=== PATIENT | male | born 1985 | race Caucasian/White ===

== ENCOUNTER 2024-04-19 21:56 | Inpatient (IN) | payer SELFPAY ==
[2024-04-19 21:58] VITALS: BP 145/103; PULSE 112; RESP 18; TEMP 37.1; O2SAT 92; BMI 22.6
[2024-04-19 22:01] VITALS: BP 145/103; PULSE 109; O2SAT 94
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
[2024-04-19 22:48] LABS: Basophils # 0.1 10^3/uL (0.0-0.1); Basophils % 0.8 %; Eosinophils # 0.1 10^3/uL (0.0-0.8); Hematocrit 40.7 % (37-53); Lymphocytes # 2.3 10^3/uL (0.8-4.8); Lymphocytes % 34.4 %; Mean Corpuscular HGB Conc 32.9 g/dL (30-55); Mean Corpuscular Hemoglobin 28.5 pg (27-33); Mean Corpuscular Volume 86.6 fl (82-101); Mean Platelet Volume 9.9 fL (7.4-10.4); Monocytes # 0.2 10^3/uL (0.2-0.9); Monocytes % 3.5 %; Neutrophils # 3.93 10^3/uL (1.8-7.7); Nucleated Red Blood Cells % 0 %; Platelet Count 235 10^3/cmm (157-399); Red Cell Distribution Width 13.2 % (12.1-15.1); White Blood Count 6.65 10^3/uL (3.29-11.43)
[2024-04-19 22:52] LABS: Bilirubin Urine Negative (Negative); Blood Urine Negative (Negative); Glucose Urine UA Negative (Normal); Ketones Urine Negative (Negative); Leukocyte Esterase Urine Negative (Negative); Nitrate Urine Negative (Negative); Protein Urine 1+ (Negative); Specific Gravity, Urine 1.016 (1.005-1.030); Urine Appearance Clear (CLEAR); Urine Color Yellow (Yellow)
--- NOTE | 2024-04-19 22:52 | PC.NURSE ---
Pt changed into green scrubs, belongings taken from pt and bagged. Room cleared and sitter present.
[2024-04-19 22:57] LABS: Add Urine Microscopic? YES; Bacteria Urine None Seen /hpf; Hyaline Casts Urine 1.21 /lpf; RBC Urine 0-2 /hpf (0-2); Squamous Epithelial Cell Urine 0-5 /hpf (0-5); WBC Urine 0-5 /hpf (0-5)
[2024-04-19 23:00] LABS: Amphetamines Screen Urine Negative (Negative); Barbiturates Screen Urine Negative (Negative); Benzodiazepines Screen Urine Negative (Negative); Cocaine Screen Urine Negative (Negative); Opiate Screen Urine Negative (Negative); PCP Screen Urine Negative (Negative); THC Screen Urine Positive (Negative)
[2024-04-19] MEDS: HYDROmorphone 0.5 MG/0.5 ML INJ IVP (23:04)
[2024-04-19 23:10] LABS: Alanine Aminotransferase 103 U/L (0-41); Albumin Level 4.3 g/dL (3.5-5.2); Alkaline Phosphatase 139 U/L (40-130); Anion Gap 19.3 (5-19); Aspartate Amino Transferase 219 U/L (0-40); Blood Urea Nitrogen 9 mg/dL (6-20); Calcium 8.1 mg/dL (8.5-10.5); Carbon Dioxide 23 mmol/L (22-29); Chloride 105 mmol/L (98-107); Creatinine Clr Calc Pharmacy 127.6151; Globulin 2.7 g/dL (1.3-4.6); Glomerular Filtration Rate 125.5 mL/min (90-130); Glucose 94 mg/dL (65-115); Osmolality Calculated 296 mOsm/kg (285-295); Potassium 3.3 mmol/L (3.5-5.1); Sodium 144 mmol/L (136-145); Total Bilirubin 0.7 mg/dL (0.15-1.2)
[2024-04-19 23:11] LABS: Acetaminophen < 5.0 ug/mL (10-30); Salicylate < 0.3 mg/dL (3-10)
[2024-04-19 23:12] LABS: Alcohol Level 343 mg/dL (0-10)
--- NOTE | 2024-04-19 23:39 | PC.NURSE ---
Pts 96 hour hold rights were read to the pt at this time with security. pt does not have any questions or concerns at this time
[2024-04-20] VITALS (10 sets, daily range): BP systolic 123–172; BP diastolic 62–99; PULSE 86–121; RESP 16–19; TEMP 36.8–37.2; O2SAT 93–96
--- NOTE | 2024-04-20 02:05 | PC.NURSE ---
This DIRECTOR SUPPLY CHAIN removed IV from right forearm upon arrival to unit. Pt tolerated well.
[2024-04-20] MEDS: ibuprofen 600 mg Tablet PO ×2 (02:48→23:17)
[2024-04-20] MEDS: hyDROXYzine 25 mg Capsule 50 MG PO (02:49)
[2024-04-20] MEDS: trazodone 50 mg Tablet PO (02:49)
[2024-04-20] MEDS: OLANZapine 5 mg ODT PO (02:49)
[2024-04-20] MEDS: nicotine 4 mg lozenge MUCOUS MEM ×2 (03:22→23:17)
--- NOTE | 2024-04-20 09:07 | PC.OT ---
OT courtney attempted with nursing stating let them sleep; will attempt again at a later time.
[2024-04-20] MEDS: thiamine 100 mg Tablet PO (09:13)
[2024-04-20] MEDS: flu vacc pf 24-25 (6 mos+) SYRINGE 45 MCG IM (09:13)
[2024-04-20] MEDS: multivitamin therapeutic Tablet 1 TAB PO (09:13)
[2024-04-20] MEDS: folic acid 1 mg Tablet PO (09:13)
[2024-04-20] MEDS: LORazepam 2 mg Tablet PO ×3 (09:26→23:16)
--- NOTE | 2024-04-20 09:26 | PC.NURSE ---
Pt given 2mg PO Ativan per protocol for a 12 on the CIWA scale.
--- NOTE | 2024-04-20 12:08 | PC.OT ---
OT evaluation attempted with patient sleeping soundly; will attempt again at another time.
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
[2024-04-21] VITALS (7 sets, daily range): BP systolic 121–152; BP diastolic 80–99; PULSE 87–117; RESP 16–18; TEMP 36.3–37.7; O2SAT 93–97
[2024-04-21] MEDS: multivitamin therapeutic Tablet 1 TAB PO (08:14)
[2024-04-21] MEDS: thiamine 100 mg Tablet PO (08:14)
[2024-04-21] MEDS: acetaminophen 325 mg Tablet 650 MG PO ×2 (08:14→14:30)
[2024-04-21] MEDS: LORazepam 2 mg Tablet PO ×3 (08:14→16:57)
[2024-04-21] MEDS: folic acid 1 mg Tablet PO (08:14)
[2024-04-21] MEDS: nicotine 4 mg lozenge MUCOUS MEM ×5 (08:17→21:19)
[2024-04-21] MEDS: ibuprofen 600 mg Tablet PO ×3 (10:34→22:51)
--- NOTE | 2024-04-21 13:08 | P.NPUPN_ITS ---
Subjective NPU 2 Subjective: 39-year-old white male admitted with par anoia and suicidal ideation with a history of alcohol dependence. The patient continued to have show evidence of alcohol withdrawal symptoms with some autonomic instability. He had required the use of Ativan to manage alcohol withdrawal symptoms. He had continued to appear tired and lying in bed most of the day and was unable to provide any further information regarding why he had taken a plane from [place] to come to [place] with no family in the nearby area. He had been unable to engage in self-care without significant prompting and help. He had reported being unable to recall his medications were where he had been hospitalized last week for treatment in [place]. The patient reports that he was on wellbutrin and seroquel at the time of discharge last week from hospital in [place]. Mental Status Exam 2 MSE Comments: The patient had difficulty with staying awake as he was in and out of consciousness again today. He had active nasal abrasion with no active bleeding but dried blood on his nose. His hygiene was poor. He appeared tremulous at times. He was oriented to person only today. His mood was described as :not good. His affect was subdued. There was no evidence of any abnormal involuntary motor movements, tics, or tremors appreciated. There was no evidence of delusional thinking. He did not appear to be responding to internal stimuli. His attention span was impaired. His recent and remote memory appeared impaired. His insight is poor. His judgment is impaired. His impulse control appeared limited. Vitals/I&O/Wt Last Vital Signs Temp 97.4 F L 04/21/24 11:47 Pulse 117 H 04/21/24 11:47 Resp 16 04/21/24 11:47 BP 146/98 04/21/24 11:47 Pulse Ox 97 04/21/24 11:47 O2 Del Method Room Air 04/21/24 11:47 Weight last 48 hrs Weight 63.503 kg Data NPU 04/19/24 22:38 04/19/24 22:38 A&P Assessment and plan (1) Unspecified mood [affective] disorder: (2) Alcohol abuse: (3) Suicidal ideation: Plan 39-year-old male history of significant alcohol abuse with a blood alcohol level of 343 involuntarily hospitalized at N[facility] with inability to provide further history at this time. #1.? Engage patient in individual milieu and group therapy. #2?? Recommend sober living treatment at the highest level of care to which the patient is willing to commit #3??? CIWA for alcohol withdrawal #4?? TO-15 minute checks? #5?? Will attempt to gather collateral information and monitor mood in context of involuntary placement. Continue Seroquel restarted at 200mg at night. Attempt to gather medical records from facility in [facility]. PDMP PDMP Reviewed: Not Reviewed Involuntary Hold Information 2 Hold Status: Legal Status: 96 Hour Hold Date/Time Hold Expires: 0 04/25/24@3034 Attestations NPU 2 Medical Necessity Statement*: Inpatient hospitalization is medically necessary and deemed to be the clinically appropriate intervention at this time.? ? Medications will be initiated and adjusted accordingly.? The patient?s likely length of stay is 5-7 days.? Coding Level of Care Code Acute Code for Chg Fwd Diagnoses Unspecified mood [affective] disorder F39 Alcohol abuse F10.10 Suicidal ideation R45.851
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
--- NOTE | 2024-04-21 16:45 | PC.NURSE ---
@ [phone] fax sent to [facility] @[phone] with a signed release of information on patients stay at their facility.
--- NOTE | 2024-04-21 16:54 | PC.NURSE ---
[facility] [place] medical records shan at [phone] she stated that she would be able to send information in next 30minutes.
[2024-04-21] MEDS: quetiapine 100 mg Tablet 200 MG PO (21:12)
[2024-04-21] MEDS: trazodone 50 mg Tablet PO (21:12)
[2024-04-21] MEDS: hyDROXYzine 25 mg Capsule 50 MG PO (21:12)
[2024-04-22] VITALS (7 sets, daily range): BP systolic 118–140; BP diastolic 74–96; PULSE 99–128; RESP 16–18; TEMP 36.5–37.2; O2SAT 94–97
[2024-04-22] MEDS: OLANZapine 5 mg ODT PO ×3 (00:03→21:04)
[2024-04-22] MEDS: trazodone 50 mg Tablet PO ×3 (00:03→23:18)
[2024-04-22] MEDS: nicotine 4 mg lozenge MUCOUS MEM ×8 (03:19→23:18)
[2024-04-22] MEDS: ondansetron 4 MG Tablet PO (03:26)
[2024-04-22] MEDS: acetaminophen 325 mg Tablet 650 MG PO ×2 (03:26→14:19)
[2024-04-22] MEDS: LORazepam 2 mg Tablet PO ×2 (03:26→11:53)
--- NOTE | 2024-04-22 03:28 | PC.NURSE ---
ciwa = 10 ATIVAN 2MG po GIVEN
[2024-04-22] MEDS: thiamine 100 mg Tablet PO (07:58)
[2024-04-22] MEDS: multivitamin therapeutic Tablet 1 TAB PO (07:58)
[2024-04-22] MEDS: folic acid 1 mg Tablet PO (07:58)
[2024-04-22] MEDS: ibuprofen 600 mg Tablet PO (07:58)
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
[2024-04-22] MEDS: hyDROXYzine 25 mg Capsule 50 MG PO (21:04)
[2024-04-22] MEDS: quetiapine 100 mg Tablet 200 MG PO (21:04)
[2024-04-22] MEDS: haloperidol 5 mg Tablet PO (23:19)
[2024-04-23] MEDS: nicotine 4 mg lozenge MUCOUS MEM ×9 (01:40→23:25)
[2024-04-23] MEDS: ibuprofen 600 mg Tablet PO ×2 (02:41→07:59)
[2024-04-23 03:00] VITALS: BP 120/80; PULSE 116; RESP 16; TEMP 36.8; O2SAT 94
[2024-04-23 07:00] VITALS: BP 123/88; PULSE 98; RESP 16; TEMP 36.6; O2SAT 94
[2024-04-23] MEDS: hyDROXYzine 25 mg Capsule 50 MG PO ×3 (07:58→23:25)
[2024-04-23] MEDS: folic acid 1 mg Tablet PO (07:58)
[2024-04-23] MEDS: thiamine 100 mg Tablet PO (07:59)
[2024-04-23] MEDS: buPROPion XL (24 HR) 150 mg Tablet PO (08:00)
[2024-04-23] MEDS: multivitamin therapeutic Tablet 1 TAB PO (08:00)
[2024-04-23 11:00] VITALS: BP 129/79; PULSE 108; RESP 16; TEMP 36.8; O2SAT 95
[2024-04-23 15:00] VITALS: BP 149/101; PULSE 113; RESP 16; TEMP 36.3; O2SAT 96
[2024-04-23] MEDS: OLANZapine 5 mg ODT PO (15:46)
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
[2024-04-23] MEDS: acetaminophen 325 mg Tablet 650 MG PO ×2 (17:59→23:25)
[2024-04-23 19:00] VITALS: BP 145/104; PULSE 116; RESP 18; TEMP 36.9; O2SAT 96
[2024-04-23] MEDS: trazodone 50 mg Tablet PO ×2 (20:14→23:25)
[2024-04-23] MEDS: quetiapine 100 mg Tablet 200 MG PO (20:15)
[2024-04-23] MEDS: LORazepam 2 mg Tablet PO (20:15)
[2024-04-23 23:00] VITALS: BP 129/79; PULSE 120; RESP 17; O2SAT 96
[2024-04-24 03:00] VITALS: BP 126/95; PULSE 81; RESP 16; O2SAT 97
[2024-04-24 07:00] VITALS: BP 140/92; PULSE 88; RESP 16; TEMP 36.7; O2SAT 96
[2024-04-24] MEDS: thiamine 100 mg Tablet PO (07:58)
[2024-04-24] MEDS: folic acid 1 mg Tablet PO (07:58)
[2024-04-24] MEDS: hyDROXYzine 25 mg Capsule 50 MG PO ×2 (07:58→15:52)
[2024-04-24] MEDS: ibuprofen 600 mg Tablet PO ×2 (07:58→15:52)
[2024-04-24] MEDS: buPROPion XL (24 HR) 150 mg Tablet PO (07:58)
[2024-04-24] MEDS: multivitamin therapeutic Tablet 1 TAB PO (07:59)
[2024-04-24] MEDS: nicotine 4 mg lozenge MUCOUS MEM ×5 (08:00→19:49)
[2024-04-24 11:00] VITALS: BP 74/43; PULSE 102; RESP 16; TEMP 36.8; O2SAT 98
--- NOTE | 2024-04-24 12:56 | P.NPUPN_ITS ---
Subjective NPU 2 Subjective: 39-year-old white male admitted with par anoia and suicidal ideation with a history of alcohol dependence. The patient had endorsed depression but stated that he was feeling better. He had continued to worry about being homeless. He had reported no nightmares or flashbacks regarding previous trauma. He had reported no cravings for alcohol at this time. He had reported some improvement in sleep with the increase in Seroquel. Patient stated that he intended on remaining in [place] and was hopeful about going to a [facility] to remain sober. Mental Status Exam 2 MSE Comments: The patient was alert and oriented x3 today. He had healing nasal abrasion. His hygiene was fair. There was no evidence of any abnormal involuntary motor movements, tics, or tremors appreciated. His mood was described as : depressed His affect was restricted in range. His thought process was linear, logical and goal directed. There was no evidence of delusional thinking. He did not appear to be responding to internal stimuli. His attention span was impaired. His recent and remote memory appeared to be improving. His insight is improving. His judgment is impaired. His impulse control appeared fair. Vitals/I&O/Wt Last Vital Signs Temp 98.3 F 04/24/24 11:00 Pulse 102 H 04/24/24 11:00 Resp 16 04/24/24 11:00 BP 74/43 04/24/24 11:00 Pulse Ox 98 04/24/24 11:00 O2 Del Method Room Air 04/24/24 11:00 Weight last 48 hrs Weight 71.123 kg Data NPU 04/19/24 22:38 04/19/24 22:38 A&P Assessment and plan (1) Unspecified mood [affective] disorder: (2) Alcohol abuse: (3) Suicidal ideation: Plan 39-year-old male history of significant alcohol abuse with a blood alcohol level of 343 involuntarily hospitalized at NPU with inability to provide further history at this time. #1.? Engage patient in individual milieu and group therapy. #2?? Recommend sober living treatment at the highest level of care to which the patient is willing to commit #3??? CIWA for alcohol withdrawal #4?? TO-15 minute checks? #5?? Will attempt to gather collateral information and monitor mood in context of involuntary placement. Continue Seroquel at 200mg at night. Increase wellbutrin xl 300mg in am. PDMP PDMP Reviewed: Not Reviewed Involuntary Hold Information 2 Hold Status: Legal Status: 96 Hour Hold Date/Time Hold Expires: 04/25/2024 @ 1007 Attestations NPU 2 Medical Necessity Statement*: Inpatient hospitalization is medically necessary and deemed to be the clinically appropriate intervention at this time.? ? Medications will be initiated and adjusted accordingly.? The patient?s likely length of stay is 3-4 days.? Coding Level of Care Code Acute Code for Chg Fwd Diagnoses Unspecified mood [affective] disorder F39 Alcohol abuse F10.10 Suicidal ideation R45.851
[2024-04-24 15:00] VITALS: BP 134/94; PULSE 108; RESP 16; TEMP 36.6; O2SAT 96
[2024-04-24 19:00] VITALS: BP 138/85; PULSE 110; RESP 18; TEMP 37.3; O2SAT 96
[2024-04-24] MEDS: quetiapine 100 mg Tablet 200 MG PO (19:48)
[2024-04-24] MEDS: trazodone 50 mg Tablet PO ×2 (19:48→22:44)
[2024-04-24] MEDS: acetaminophen 325 mg Tablet 650 MG PO (19:48)
[2024-04-24 23:00] VITALS: BP 121/88; PULSE 120; RESP 18; O2SAT 95
[2024-04-25 03:00] VITALS: BP 128/82; PULSE 99; RESP 18; TEMP 36.4; O2SAT 95
[2024-04-25] MEDS: ibuprofen 600 mg Tablet PO ×2 (05:19→16:13)
[2024-04-25] MEDS: nicotine 4 mg lozenge MUCOUS MEM ×8 (06:02→22:07)
[2024-04-25] MEDS: multivitamin therapeutic Tablet 1 TAB PO (07:56)
[2024-04-25] MEDS: folic acid 1 mg Tablet PO (07:57)
[2024-04-25] MEDS: buPROPion XL (24 HR) 150 mg Tablet 300 MG PO (07:57)
[2024-04-25] MEDS: thiamine 100 mg Tablet PO (07:57)
[2024-04-25] MEDS: hyDROXYzine 25 mg Capsule 50 MG PO ×2 (07:58→18:17)
[2024-04-25 14:00] VITALS: BP 160/110; PULSE 98; RESP 18; TEMP 37.2; O2SAT 98
--- NOTE | 2024-04-25 15:03 | P.NPUPN_ITS ---
Subjective NPU 2 Subjective: 39-year-old white male admitted with par anoia and suicidal ideation with a history of alcohol dependence. The patient reported no changes in regards to his mood. He had stated that he was sleeping better with the increase in Seroquel. He had reported his depression had been better. He had complained of being homeless and stated that he would like to be able to find a half-way to reside in after leaving here. He had remained isolative on the milieu but reported having no suicidal thoughts at this time. Mental Status Exam 2 MSE Comments: The patient was alert and oriented x3 today. He had healing nasal abrasion. His hygiene was fair. There was no evidence of any abnormal involuntary motor movements, tics, or tremors appreciated. His mood was described as : okay His affect was restricted in range. His thought process was linear, logical and goal directed. There was no evidence of delusional thinking. He did not appear to be responding to internal stimuli. His attention span was improving. His recent and remote memory appeared to be improving. His insight is improving. His judgment is improving. His impulse control appeared fair. Vitals/I&O/Wt Last Vital Signs Temp 97.6 F 04/25/24 03:00 Pulse 99 04/25/24 03:00 Resp 18 04/25/24 03:00 BP 128/82 04/25/24 03:00 Pulse Ox 95 04/25/24 03:00 O2 Del Method Room Air 04/24/24 15:00 Weight last 48 hrs Weight 71.123 kg Data NPU 04/19/24 22:38 04/19/24 22:38 A&P Assessment and plan (1) Unspecified mood [affective] disorder: (2) Alcohol abuse: (3) Suicidal ideation: Plan 39-year-old male history of significant alcohol abuse with a blood alcohol level of 343 involuntarily hospitalized at NPU with history of alcohol dependence and depression along with history of questionable psychosis. #1.? Engage patient in individual milieu and group therapy. #2?? Recommend sober living treatment at the highest level of care to which the patient is willing to commit #3??? CIWA for alcohol withdrawal #4?? TO-15 minute checks? #5?? Will attempt to gather collateral information and monitor mood in context of involuntary placement. Continue Seroquel at 200mg at night. Continue wellbutrin xl 300mg in am. PDMP PDMP Reviewed: Not Reviewed Involuntary Hold Information 2 Hold Status: Legal Status: 96 Hour Hold Date/Time Hold Expires: 04/25/2024 @ 7526 Attestations NPU 2 Medical Necessity Statement*: Inpatient hospitalization is medically necessary and deemed to be the clinically appropriate intervention at this time.? ? Medications will be initiated and adjusted accordingly.? The patient?s likely length of stay is 1-2 days.? Coding Level of Care Code Acute Code for Chg Fwd Diagnoses Unspecified mood [affective] disorder F39 Alcohol abuse F10.10 Suicidal ideation R45.851
[2024-04-25] MEDS: OLANZapine 5 mg ODT PO (18:52)
[2024-04-25 19:30] VITALS: BP 135/98; PULSE 98; RESP 18; TEMP 37.2; O2SAT 97
[2024-04-25] MEDS: trazodone 50 mg Tablet PO (20:16)
[2024-04-25] MEDS: quetiapine 100 mg Tablet 200 MG PO (20:16)
[2024-04-25] MEDS: acetaminophen 325 mg Tablet 650 MG PO (20:43)
[2024-04-26] MEDS: trazodone 50 mg Tablet PO (00:30)
[2024-04-26 06:00] VITALS: BP 105/69; PULSE 102; RESP 16; TEMP 36.6; O2SAT 97
[2024-04-26] MEDS: acetaminophen 325 mg Tablet 650 MG PO ×2 (07:12→13:41)
[2024-04-26] MEDS: nicotine 4 mg lozenge MUCOUS MEM ×3 (07:17→11:28)
[2024-04-26] MEDS: thiamine 100 mg Tablet PO (07:53)
[2024-04-26] MEDS: multivitamin therapeutic Tablet 1 TAB PO (07:53)
[2024-04-26] MEDS: folic acid 1 mg Tablet PO (07:53)
[2024-04-26] MEDS: buPROPion XL (24 HR) 150 mg Tablet 300 MG PO (07:54)
[2024-04-26] MEDS: hyDROXYzine 25 mg Capsule 50 MG PO (07:55)
--- NOTE | 2024-04-26 09:15 | XRR_ITS ---
PROCEDURE INFORMATION: Exam: XR Right Ribs Exam date and time: 04/26/2024 8:32 AM Age: 39 years old Clinical indication: Chest wall pain; Right; Additional info: Repeat / pain TECHNIQUE: Imaging protocol: Radiologic exam of the right ribs. Views: 2 views. COMPARISON: CR XR ribs RT mn 3V w CXR1V [id number] 04/21/2024 1:18 PM FINDINGS: Bones/joints: There is no right-sided rib fracture. Lungs: Calcified granuloma at the right lung base. Pleural spaces: No pneumothorax. Soft tissues: Normal. XR/XR ribs RT 2V* [id number] IMPRESSION: No right-sided rib fracture
[2024-04-26] MEDS: ibuprofen 600 mg Tablet PO (11:29)
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
[2024-04-26 13:48] VITALS: BP 143/89; PULSE 117; RESP 18; TEMP 36.9; O2SAT 98
[2024-04-26 13:49] VITALS: BP 142/89; PULSE 117; RESP 18; TEMP 36.9; O2SAT 98
== END 2024-04-26 15:38 | disposition home or self-care (01) | DRG 885 ==
LOC: ER 23:38 → NP 04-20 00:40
PROVIDERS: Admitting Provider Psychiatry & Neurology Psychiatry; Emergency Provider Physician Assistant; Visit Provider Psychiatry & Neurology Psychiatry
DX: F39 Unspecified mood [affective] disorder (principal); R45.851 Suicidal ideations; F10.239 Alcohol dependence with withdrawal, unspecified; Z59.00 Homelessness unspecified; Y90.8 Blood alcohol level of 240 mg/100 ml or more
CPT/HCPCS: 70450; 70486; 71100; 71101; 72125; 73000; 73010; 80053; 80306; 80307; 81001; 85025; 90471; 90686; 96374; 97150; 97165; 99285; J1171; J9999; Q0162

== ENCOUNTER 2024-05-03 04:04 | Emergency (ER) | payer MEDICARE, SELFPAY ==
[2024-05-03 04:05] VITALS: BP 126/86; PULSE 137; RESP 18; TEMP 36.6; O2SAT 97; BMI 24.2
[2024-05-03 04:15] VITALS: BP 126/86; PULSE 136; RESP 16; O2SAT 95
[2024-05-03 04:35] LABS: Basophils # 0.1 10^3/uL (0.0-0.1); Basophils % 0.5 %; Eosinophils # 0.1 10^3/uL (0.0-0.8); Eosinophils % 0.3 %; Hematocrit 49.8 % (37-53); Lymphocytes # 8.6 10^3/uL (0.8-4.8); Lymphocytes % 52.5 %; Mean Corpuscular HGB Conc 32.3 g/dL (30-55); Mean Corpuscular Hemoglobin 27.9 pg (27-33); Mean Corpuscular Volume 86.3 fl (82-101); Mean Platelet Volume 8.7 fL (7.4-10.4); Monocytes # 0.5 10^3/uL (0.2-0.9); Monocytes % 3.2 %; Neutrophils % 43.1 %; Nucleated Red Blood Cells % 0 %; Platelet Count 566 10^3/cmm (157-399); Red Blood Count 5.77 10^6/uL (3.85-5.65); Red Cell Distribution Width 15.1 % (12.1-15.1); White Blood Count 16.47 10^3/uL (3.29-11.43)
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
[2024-05-03 04:52] LABS: Alanine Aminotransferase 139 U/L (0-41); Albumin Level 4.5 g/dL (3.5-5.2); Alkaline Phosphatase 154 U/L (40-130); Anion Gap 29.4 (5-19); Aspartate Amino Transferase 179 U/L (0-40); Blood Urea Nitrogen 15 mg/dL (6-20); Calcium 8.7 mg/dL (8.5-10.5); Carbon Dioxide 17 mmol/L (22-29); Chloride 96 mmol/L (98-107); Creatinine Clr Calc Pharmacy 102.0842; Glomerular Filtration Rate 93.9 mL/min (90-130); Glucose 82 mg/dL (65-115); Osmolality Calculated 288 mOsm/kg (285-295); Potassium 3.4 mmol/L (3.5-5.1); Sodium 139 mmol/L (136-145); Total Bilirubin 0.9 mg/dL (0.15-1.2); Total Protein 7.5 g/dL (6.6-8.7)
[2024-05-03 04:53] LABS: Acetaminophen < 5.0 ug/mL (10-30); Salicylate < 0.3 mg/dL (3-10); Slide Review Slide Review Perform
[2024-05-03 04:54] LABS: Alcohol Level 496 mg/dL (0-10)
[2024-05-03] MEDS: sodium chloride 0.9% 1,000 ML 999 ML IV ×2 (05:38→06:45)
[2024-05-03 06:39] VITALS: BP 135/79; PULSE 111; RESP 18; O2SAT 96
--- NOTE | 2024-05-03 07:06 | PC.NURSE ---
PT ambulated to bathroom
[2024-05-03 07:34] VITALS: BP 131/76; PULSE 78; O2SAT 99
== END 2024-05-03 07:35 | disposition home or self-care (01) ==
PROVIDERS: Emergency Medicine; Emergency Provider Family Medicine
DX: F10.129 Alcohol abuse with intoxication, unspecified (principal); Y90.8 Blood alcohol level of 240 mg/100 ml or more
CPT/HCPCS: 36415; 80053; 80307; 85025; 96360; 96361; 99284; J7030

== ENCOUNTER 2024-05-03 14:03 | Emergency (ER) | payer MEDICARE, SELFPAY ==
[2024-05-03 14:05] VITALS: BP 174/83; PULSE 122; RESP 18; TEMP 37.1; O2SAT 91
--- NOTE | 2024-05-03 14:08 | W.ED.PSYCHS ---
HPI - Psych General: Chief Complaint: Psychiatric Symptoms Stated Complaint: SI Time Seen by Provider: 05/03/24 14:04 Source: patient and EMS Mode of arrival: EMS Limitations: no limitations History of Present Illness: 39-year-old male who has a history of alcoholism was seen here early this morning intoxicated he is also homeless. Patient states he is not suicidal he has a plan to shoot himself he has been admitted previously to the psych [facility] 2 weeks ago. Denies any worse improving factors. Associated symptoms: Reports depression and suicidal ideation Related Data Previous Rx's ?Medication ?Instructions ?Recorded bupropion HCl 300 mg 24 hr tablet, 300 mg PO DAILY 30 days #30 tabs 04/25/24 extended release folic acid 1 mg tablet 1 mg PO DAILY 30 days #30 tabs 04/25/24 quetiapine 200 mg tablet 200 mg PO BEDTIME 30 days #30 tabs 04/25/24 thiamine mononitrate (vit B1) 100 100 mg PO DAILY 30 days #30 tabs 04/25/24 mg tablet (Vitamin B-1 (mononitrate)) trazodone 50 mg tablet 50 mg PO BEDTIME PRN Sleep 30 days 04/25/24 #30 tabs Allergies Allergy/AdvReac Type Severity Reaction Status Date / Time No Known Allergies Allergy Verified 05/03/24 04:11 Review of Systems Const: Denies: fever(s), chills, body aches or change in appetite ENMT: Denies: throat pain or dental pain Card: Denies: chest pain Resp: Denies: dyspnea GI: Denies: abdominal pain, nausea, vomiting or diarrhea Musc: Denies: neck pain or back pain Skin/Breast: Denies: rash Neuro: Denies: headache(s) Psych: Reports: depression and suicidal ideation Physical Exam Const: COMMON NORMALS: patient oriented x3 HENMT: COMMON NORMALS: normocephalic and atraumatic HEAD & SCALP: normocephalic and atraumatic Eye: COMMON NORMALS: Equal, round and reactive pupils present and EOMs intact bilaterally PUPIL: Yes Equal, round and reactive pupils present Neck/C-Spine: COMMON NORMALS: full ROM and supple Chest: COMMONS NORMALS: normal inspection of the chest Resp: COMMON NORMALS: normal respiratory effort, No use of accessory muscles and clear to auscultation bilaterally AUSCULTATION: clear to auscultation bilaterally Cardio: COMMON NORMALS: regular rate, regular rhythm and No murmurs present (Cardio) RATE: regular rate RHYTHM: regular rhythm GI: COMMON NORMALS: Normal to inspection, nondistended, normoactive bowel sounds present, Soft to palpation, non-tender and no masses PALPATION: Yes Soft to palpation Extremity: COMMON NORMALS: normal to inspection and full ROM Neuro: COMMON NORMALS: patient oriented x3, moves all extremities and no focal motor deficits Psych: COMMON NORMALS: Normal thought process present and cooperative MOOD & AFFECT: Yes depressed mood THOUGHT PROCESS: Normal thought process present THOUGHT CONTENT: Yes Suicidality present Skin: COMMON NORMALS: no rashes or lesions noted and no wounds GENERAL SKIN EXAM: no rashes or lesions noted Course Vital Signs: Vital signs: Vital Signs Temperature 98.7 F 05/03/24 14:05 Pulse Rate 122 H 05/03/24 14:05 Respiratory Rate 18 05/03/24 14:05 Blood Pressure 174/83 05/03/24 14:05 Pulse Oximetry 91 05/03/24 14:05 Oxygen Delivery Me thod Room Air 05/03/24 14:05 MDM - Psych Medical Decision Making Patient presents with suicidal ideations he is also intoxicated we will place him on a 96-hour hold spoke to the psychiatrist will admit at this time Medical Records I reviewed the patient's medical records. Lab Data I reviewed the patient's lab results. 05/03/24 14:18 05/03/24 14:18 Laboratory Results WBC 7.35 10^3/uL (3.29-11.43) 05/03/24 14:18 RBC 4.95 10^6/uL (3.85-5.65) 05/03/24 14:18 Hgb 13.90 g/dL (11.27-16.99) 05/03/24 14:18 Hct 42.5 % (37-53) 05/03/24 14:18 MCV 85.9 fl (82-101) 05/03/24 14:18 MCH 28.1 pg (27-33) 05/03/24 14:18 MCHC 32.7 g/dL (30-55) 05/03/24 14:18 RDW 14.9 % (12.1-15.1) 05/03/24 14:18 Plt Count 390 10^3/cmm (157-399) D 05/03/24 14:18 MPV 8.7 fL (7.4-10.4) 05/03/24 14:18 Neut % (Auto) 54.7 % 05/03/24 14:18 Lymph % (Auto) 37.3 % 05/03/24 14:18 [place] % (Auto) 4.8 % 05/03/24 14:18 Eos % (Auto) 2.2 % 05/03/24 14:18 Baso % (Auto) 0.7 % 05/03/24 14:18 Neut # (Auto) 4.03 10^3/uL (1.8-7.7) 05/03/24 14:18 Lymph # (Auto) 2.7 10^3/uL (0.8-4.8) 05/03/24 14:18 [place] # (Auto) 0.4 10^3/uL (0.2-0.9) 05/03/24 14:18 Eos # (Auto) 0.2 10^3/uL (0.0-0.8) 05/03/24 14:18 Baso # (Auto) 0.1 10^3/uL (0.0-0.1) 05/03/24 14:18 Nucleated RBC % (auto) 0 % 05/03/24 14:18 Nucleated RBCs # 0.0 /100WBC 05/03/24 14:18 Sodium 137 mmol/L (136-145) 05/03/24 14:18 Potassium 3.7 mmol/L (3.5-5.1) 05/03/24 14:18 Chloride 100 mmol/L (98-107) 05/03/24 14:18 Carbon Dioxide 20 mmol/L (22-29) L 05/03/24 14:18 Anion Gap 20.7 (5-19) H 05/03/24 14:18 BUN 10 mg/dL (6-20) 05/03/24 14:18 Creatinine 0.6 mg/dL (0.7-1.2) L 05/03/24 14:18 GFR Calculation 150.0 mL/min (90-130) H 05/03/24 14:18 Glucose 141 mg/dL (65-115) H 05/03/24 14:18 Calculated Osmolality 285 mOsm/kg (285-295) 05/03/24 14:18 Calcium 8.6 mg/dL (8.5-10.5) 05/03/24 14:18 Total Bilirubin 0.7 mg/dL (0.15-1.2) 05/03/24 14:18 AST 109 U/L (0-40) H 05/03/24 14:18 ALT 115 U/L (0-41) H 05/03/24 14:18 Alkaline Phosphatase 125 U/L (40-130) 05/03/24 14:18 Total Protein 7.1 g/dL (6.6-8.7) 05/03/24 14:18 Albumin 4.3 g/dL (3.5-5.2) 05/03/24 14:18 Globulin 2.8 g/dL (1.3-4.6) 05/03/24 14:18 Salicylates < 0.3 mg/dL (3-10) L 05/03/24 14:18 Urine Opiates Screen Negative ng/mL (Negative) 05/03/24 14:18 Acetaminophen < 5.0 ug/mL (10-30) L 05/03/24 14:18 Ur Barbiturates Screen Negative ng/mL (Negative) 05/03/24 14:18 Ur Phencyclidine Scrn Negative ng/mL (Negative) 05/03/24 14:18 Ur Amphetamines Screen Negative ng/mL (Negative) 05/03/24 14:18 U Benzodiazepines Scrn Negative ng/mL (Negative) 05/03/24 14:18 Urine Cocaine Screen Negative ng/mL (Negative) 05/03/24 14:18 U Marijuana (THC) Screen Positive ng/mL (Negative) H 05/03/24 14:18 Ethyl Alcohol 310 mg/dL (0-10) H* 05/03/24 14:18 All radiology interpretation(s) finalized by discharge Discharge Plan Discharge Patient Disposition: Admitted As Inpatient Clinical Impression: Suicidal ideation, Alcoholic intoxication Condition: Stable Prescriptions: No Action trazodone 50 mg Tablet 50 mg PO BEDTIME PRN (Reason: Sleep) 30 Days Qty: 30 1RF quetiapine 200 mg tablet 200 mg PO BEDTIME 30 Days Qty: 30 1RF thiamine mononitrate (vit B1) [Vitamin B-1 (mononitrate)] 100 mg Tablet 100 mg PO DAILY 30 Days Qty: 30 1RF bupropion HCl 300 mg tablet extended release 24 hr 300 mg PO DAILY 30 Days Qty: 30 1RF folic acid 1 mg Tablet 1 mg PO DAILY 30 Days Qty: 30 1RF Print Language: Citizen Of [place] Coding Level of Care Code ED 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
[2024-05-03 14:24] LABS: Basophils # 0.1 10^3/uL (0.0-0.1); Basophils % 0.7 %; Eosinophils # 0.2 10^3/uL (0.0-0.8); Eosinophils % 2.2 %; Hematocrit 42.5 % (37-53); Lymphocytes # 2.7 10^3/uL (0.8-4.8); Lymphocytes % 37.3 %; Mean Corpuscular HGB Conc 32.7 g/dL (30-55); Mean Corpuscular Hemoglobin 28.1 pg (27-33); Mean Corpuscular Volume 85.9 fl (82-101); Mean Platelet Volume 8.7 fL (7.4-10.4); Monocytes # 0.4 10^3/uL (0.2-0.9); Monocytes % 4.8 %; Neutrophils # 4.03 10^3/uL (1.8-7.7); Neutrophils % 54.7 %; Nucleated Red Blood Cells % 0 %; Platelet Count 390 10^3/cmm (157-399); Red Blood Count 4.95 10^6/uL (3.85-5.65); Red Cell Distribution Width 14.9 % (12.1-15.1); White Blood Count 7.35 10^3/uL (3.29-11.43)
--- NOTE | 2024-05-03 14:34 | PC.PHAR ---
Patient states he took all his medications about three days ago.
[2024-05-03 14:37] LABS: Amphetamines Screen Urine Negative (Negative); Barbiturates Screen Urine Negative (Negative); Benzodiazepines Screen Urine Negative (Negative); Cocaine Screen Urine Negative (Negative); Opiate Screen Urine Negative (Negative); PCP Screen Urine Negative (Negative); THC Screen Urine Positive (Negative)
[2024-05-03 14:42] LABS: Alanine Aminotransferase 115 U/L (0-41); Albumin Level 4.3 g/dL (3.5-5.2); Alkaline Phosphatase 125 U/L (40-130); Anion Gap 20.7 (5-19); Aspartate Amino Transferase 109 U/L (0-40); Blood Urea Nitrogen 10 mg/dL (6-20); Calcium 8.6 mg/dL (8.5-10.5); Carbon Dioxide 20 mmol/L (22-29); Chloride 100 mmol/L (98-107); Creatinine Clr Calc Pharmacy 153.9745; Globulin 2.8 g/dL (1.3-4.6); Glucose 141 mg/dL (65-115); Osmolality Calculated 285 mOsm/kg (285-295); Potassium 3.7 mmol/L (3.5-5.1); Sodium 137 mmol/L (136-145); Total Bilirubin 0.7 mg/dL (0.15-1.2); Total Protein 7.1 g/dL (6.6-8.7)
[2024-05-03 14:43] LABS: Acetaminophen < 5.0 ug/mL (10-30); Salicylate < 0.3 mg/dL (3-10)
[2024-05-03 14:44] LABS: Alcohol Level 310 mg/dL (0-10)
--- NOTE | 2024-05-03 15:13 | ECG_ITS ---
[facility]24[facility] Pat Name: Terrence Gilbert Department: Room: Gender: Male Mica Layer: : 1985 Requested By: Tonya Agudelo Order Number: [id number] Tate MD: Vignesh Catherine M.D. Measurements Intervals [place] Rate: 124 P: 65 LA: 161 QRS: 69 QRSD: 94 T: 52 QT: 310 QTc: 446 Interpretive Statements SINUS TACHYCARDIA NONSPECIFIC T-WAVE ABNORMALITY ABNORMAL RHYTHM ECG No previous ECG available for comparison Electronically Signed On 05-04-2024 12:33:02 CDT by Vignesh Catherine M.D. [email or web address]
[2024-05-03 16:06] LABS: Influenza A NEGATIVE (Negative); Influenza B NEGATIVE (Negative); Respiratory Syncytial Virus Ce NEGATIVE (Negative); SARS-CoV-2 PCR NEGATIVE (Negative)
[2024-05-03] MEDS: nicotine 21 mg Patch 1 PATCH TRANSDERMA (16:39)
--- NOTE | 2024-05-03 17:32 | PC.NURSE ---
96 hr rights reviewed with patient @[address] [facility] u.s. revenue officer Aj. All education reviewed at this time. No verbalized questions regarding hold statutes. Patient copy was left with pt @bedside. Pt went back to resting peacefully with eyes closed. No further needs.
[2024-05-03 20:07] LABS: Alcohol Level 139 mg/dL (0-10)
[2024-05-03 20:39] VITALS: BP 166/89; PULSE 114; RESP 14; O2SAT 95
[2024-05-03] MEDS: ondansetron hcl ODT 4 mg Tab 8 MG PO (22:52)
[2024-05-04 04:12] VITALS: BP 155/101; PULSE 99; RESP 18; O2SAT 97
[2024-05-04] MEDS: trazodone 50 mg Tablet PO (04:19)
[2024-05-04] MEDS: quetiapine 100 mg Tablet 200 MG PO (04:19)
--- NOTE | 2024-05-04 04:21 | PC.NURSE ---
PT ASKED FOR NIGHT TIME HOME MEDS BECAUSE HE COULD NOT REST. NURSE ASKED DR, DR GAVE VERBAL ORDER TO NURSE AND NIGHT MEDS WERE GIVEN.
[2024-05-04 07:25] VITALS: BP 134/90; PULSE 107; O2SAT 96
[2024-05-04] MEDS: LORazepam 2 mg Tablet PO (08:51)
== END 2024-05-04 11:24 ==
PROVIDERS: Emergency Provider Emergency Medicine
DX: R45.851 Suicidal ideations (principal); F10.129 Alcohol abuse with intoxication, unspecified; Y90.8 Blood alcohol level of 240 mg/100 ml or more
CPT/HCPCS: 36415; 80053; 80306; 80307; 85025; 87637; 93005; 99285; J9999; Q0162